=== PATIENT | male | born 1960 | race African-American/Black ===

== ENCOUNTER 2021-11-18 21:17 | Emergency (ER) | payer SELFPAY ==
[~2021-11-18] VITALS: Ht 182.9 cm; Wt 82.0 kg
[2021-11-18] MEDS ORDERED: SODIUM CHLORIDE 0.9% 1,000 ML IV ONE (23:15)
[2021-11-18 23:38] LABS: BASOPHILS % 0.7 % (0.0-2.0); EOSINOPHILS % 1.2 % (0.0-5.0); HEMATOCRIT. 35.4 % (42.0-52.0); HEMOGLOBIN. 11.6 g/dL (14.0-18.0); LYMPHOCYTES % 13.9 % (20.0-50.0); MEAN CORPUSCULAR HEMOGLOBIN 30.4 pg (28.0-32.0); MEAN CORPUSCULAR VOLUME 92.8 fL (80.0-94.0); MEAN PLATELET VOLUME 7.1 fl (7.4-10.4); MONOCYTES % 5.2 % (2.0-8.0); PLATELET 226 x1000/uL (130-400); RED BLOOD CELL COUNT 3.81 mill/uL (4.7-6.1); RED CELL DISTRIBUTION WIDTH 13.7 % (11.6-14.6)
[2021-11-18 23:39] LABS: CHLORIDE 111 mEq/L (98-107)
[2021-11-18 23:52] LABS: ETHANOL BLOOD 364 mg/dL
[2021-11-19 00:41] LABS: *AMPHETAMINES SCREEN URINE NEGATIVE (NEGATIVE); *BARBITURATES SCREEN URINE NEGATIVE (NEGATIVE); *BENZODIAZEPINES SCREEN URINE NEGATIVE (NEGATIVE); *COCAINE SCREEN URINE NEGATIVE (NEGATIVE); CANNABINOID URINE SCREEN PRESUMTIVE POSITIVE (NEGATIVE); METHADONE URINE SCREEN NEGATIVE (NEGATIVE); OPIATES URINE SCREEN NEGATIVE (NEGATIVE); PHENCYCLIDINE URINE SCREEN NEGATIVE (NEGATIVE)
[2021-11-19 05:14] VITALS: BP 106/67
== END 2021-11-19 05:25 | disposition home or self-care (01) ==
LOC: EDBD 21:17 → ER 21:17
DX: S09.8XXA Other specified injuries of head, initial encounter (principal); F10.129 Alcohol abuse with intoxication, unspecified; Y90.8 Blood alcohol level of 240 mg/100 ml or more; W01.0XXA Fall on same level from slipping, tripping and stumbling without subsequent striking against object, initial encounter; X58.XXXA Exposure to other specified factors, initial encounter; Y93.89 Activity, other specified; Y92.9 Unspecified place or not applicable
CPT/HCPCS: 36415; 70450; 71045; 80053; 80305; 80320; 82140; 84484; 85025; 93005; 96360; 99285; J7030; G0480

== ENCOUNTER 2022-01-13 13:47 | Emergency (ER) | payer MEDICAID ==
[~2022-01-13] VITALS: Ht 167.6 cm; Wt 64.0 kg
[2022-01-13 14:43] VITALS: BP 132/79
== END 2022-01-13 19:00 | disposition left against medical advice (07) ==
LOC: ER 13:47
DX: Z53.21 Procedure and treatment not carried out due to patient leaving prior to being seen by health care provider (principal)

== ENCOUNTER 2022-06-08 12:11 | Emergency (ER) | payer MEDICAID, OTHER ==
[~2022-06-08] VITALS: Ht 182.9 cm; Wt 77.0 kg
[2022-06-08 12:17] VITALS: BP 152/85
[2022-06-08] MEDS ORDERED: ACETAMINOPHEN 325MG TABLET PO ONE (13:00)
[2022-06-08 13:17] LABS: CLARITY URINE CLEAR (CLEAR); COLOR URINE YELLOW (YELLOW); KETONES URINE NEGATIVE (NEGATIVE); LEUKOCYTE ESTERASE URINE 1+ (NEGATIVE); NITRITE URINE NEGATIVE (NEGATIVE); OCCULT BLOOD URINE 1+ (NEGATIVE); PROTEIN URINE NEGATIVE (NEGATIVE); SPECIFIC GRAVITY URINE 1.022 (1.005-1.030)
[2022-06-08] MEDS ORDERED: DIPH25CA83 MT (14:27)
[2022-06-08] MEDS ORDERED: SULF1TAB48 MT (14:27)
[2022-06-08] MEDS ORDERED: TOPUD MT (14:28)
== END 2022-06-08 14:58 | disposition home or self-care (01) ==
LOC: ER 12:11
DX: S20.20XA Contusion of thorax, unspecified, initial encounter (principal); N39.0 Urinary tract infection, site not specified; Z48.00 Encounter for change or removal of nonsurgical wound dressing; M19.90 Unspecified osteoarthritis, unspecified site; I11.9 Hypertensive heart disease without heart failure; W03.XXXA Other fall on same level due to collision with another person, initial encounter; Y93.89 Activity, other specified; Y92.89 Other specified places as the place of occurrence of the external cause; Y99.8 Other external cause status
CPT/HCPCS: 71101; 81003; 99284